=== PATIENT | female | born 1970 | race Caucasian/White ===

== ENCOUNTER 2023-10-01 01:52 | Observation (INO) | payer OTHER ==
[2023-10-01] MEDS ORDERED: NALOXONE 0.4 MG/ML 1 ML VIAL IVP PRN (02:21)
[2023-10-01] MEDS ORDERED: IPRATROPIUM-ALBUTEROL 3 ML NEB INHALATION PRN (02:21)
--- NOTE | 2023-10-01 02:28 | ED ---
General Adult HPI - General Chief complaint: Shortness of Breath Stated complaint: Rib Fracture Time Seen by Provider: 10/01/23 02:00 Source: patient, EMS, RN notes reviewed, old records reviewed Mode of arrival: EMS Limitations: no limitations - History of Present Illness Initial comments: 53-year-old female history of COPD presents for evaluation of COPD exacerbation and fall with nondisplaced rib fractures. Patient was seen at outside hospital and transferred for pulmonology consultation. Patient is currently being worked up for narcolepsy and believes this may have been what happened earlier in the day resulting in rib fractures. She denies significant pain currently. She is on home oxygen at baseline. No fever. - Related Data Allergies Allergy/AdvReac Type Severity Reaction Status Date / Time No Known Allergies Allergy Verified 10/01/23 02:02 Review of Systems ROS Statement: Those systems with pertinent positive or pertinent negative responses have been documented in the HPI. ROS Other: All systems not noted in ROS Statement are negative. Past Medical History Past Medical History: Heart Failure, COPD, GERD/Reflux, Hyperlipidemia, Osteoarthritis (OA) Additional Past Medical History / Comment(s): Aly esophagis History of Any Multi-Drug Resistant Organisms: None Reported Past Surgical History: Section Additional Past Surgical History / Comment(s): Ankle Past Psychological History: Depression Smoking Status: Current every day smoker, Former smoker Past Alcohol Use History: None Reported Past Drug Use History: Marijuana General Exam Limitations: no limitations General appearance: alert, in no apparent distress Head exam: Present: atraumatic, normocephalic Eye exam: Present: normal appearance, PERRL ENT exam: Present: normal exam Neck exam: Present: normal inspection. Absent: tenderness Respiratory exam: Present: wheezes, chest wall tenderness. Absent: respiratory distress Cardiovascular Exam: Present: regular rate, normal rhythm GI/Abdominal exam: Present: soft. Absent: distended, tenderness, guarding Neurological exam: Present: alert, oriented X3 Psychiatric exam: Present: normal affect, normal mood Course Vital Signs 10/01/23 10/01/23 01:55 02:14 Temperature 97.9 F Pulse Rate 104 H Respiratory 28 H 24 Rate Blood Pressure 114/86 O2 Sat by Pulse 92 L Oximetry Medical Decision Making - Medical Decision Making Was pt. sent in by a medical professional or institution (, PA, FAG[employer]ER, urgent care, hospital, or fci...) When possible be specific @ -Transfer from [place] for COPD exacerbation Did you speak to anyone other than the patient for history (EMS, parent, family, police, friend...)? What history was obtained from this source @ -[No] Did you review nursing and triage notes (agree or disagree)? Why? @ -[I reviewed and agree with nursing and triage notes] Were old charts reviewed (outside hosp., previous admission, EMS record, old EKG, old radiological studies, urgent care reports/EKG's, fci records)? Report findings @ -[No old charts were reviewed] Differential Dyspnea: Coronary syndrome, arrhythmia, tamponade, asthma, COPD, pulmonary embolism, pneumonia, pneumothorax, pulmonary effusion, anaphylaxis, diabetic ketoacidosis, flailed chest, pulmonary contusion, diaphragmatic rupture, anemia, neuromuscular, this is not meant to be an all-inclusive list. EKG interpreted by me (3pts min.). @ -Sinus rhythm rate of 99, HI interval 155, QRS duration 92, QTc [address] segment elevation. X-rays interpreted by me (1pt min.). @Chest x-ray pending in a.m. CT interpreted by me (1pt min.). @CT from outside institution will be loaded U/S interpreted by me (1pt. min.). @ -[None done] What testing was considered but not performed or refused? (CT, X-rays, U/S, labs)? Why? @ -[None] What meds were considered but not given or refused? Why? @ -[None] Did you discuss the management of the patient with other professionals (professionals i.e. , PA, FAGOT MAKER, lab, RT, psych nurse, psychologist social, maintenance journeyman, teacher, correctional probation officer, case picker)? Give summary @ -[No] Was smoking cessation discussed for >3mins.? @ -[No] Was critical care preformed (if so, how long)? @ -[No] Were there social determinants of health that impacted care today? How? (Homelessness, low income, unemployed, alcoholism, drug addiction, transportation, low edu. Level, literacy, decrease access to med. care, mcc, rehab)? @ -[No] Was there de-escalation of care discussed even if they declined (Discuss DNR or withdrawal of care, Hospice)? DNR status @ -[No] What co-morbidities impacted this encounter? (DM, HTN, Smoking, COPD, CAD, Cancer, CVA, ARF, Chemo, Hep., AIDS, mental health diagnosis, sleep apnea, morbid obesity)? @ -COPD, oxygen dependent Was patient admitted / discharged? Hospital course, mention meds given and route, prescriptions, significant lab abnormalities, going to OR and other pertinent info. @ -[53-year-old female transferred from outside hospital for evaluation of COPD exacerbation. Patient will be admitted to the substitution for COPD exacerbation with fall and nondisplaced rib fractures. Currently not experiencing severe pain. Her radio mechanic apprentice is Dr. Umaña and will be placed on consult. Pain control will be provided as well as treatment of antibiotics, steroids, albuterol and Atrovent. Repeat laboratory testing is ordered results pending. A.m. chest x-ray is ordered. Undiagnosed new problem with uncertain prognosis? @ -[No] Drug Therapy requiring intensive monitoring for toxicity (Heparin, Nitro, Insulin, Cardizem)? @ -[No] Were any procedures done? @ -[No] Diagnosis/symptom? @COPD exacerbation, rib fractures Acute, or Chronic, or Acute on Chronic? @ -Acute Uncomplicated (without systemic symptoms) or Complicated (systemic symptoms)? @ -Complicated Side effects of treatment? @ -[No] Exacerbation, Progression, or Severe Exacerbation? @ -[No] Poses a threat to life or bodily function? How? (Chest pain, [place], [place], pneumonia, PE, COPD, DKA, ARF, appy, cholecystitis, CVA, Diverticulitis, Homicidal, Suicidal, threat to staff... and all critical care pts) @Yes, COPD, respiratory failure Disposition Clinical Impression: Acute exacerbation of chronic obstructive pulmonary disease Disposition: ADMITTED IP TO THIS HOSP Condition: Stable Is patient prescribed a controlled substance at d/c from ED?: No Referrals: Teresa Modi NPC [Primary Care Provider] - 1-2 days Time of Disposition: 02:27
[2023-10-01] MEDS: HYDROmorphone 0.5 MG/0.5 ML SYRINGE IVP PRN (02:55)
[2023-10-01 03:10] LABS: VBG PH 7.37 (7.31-7.41)
[2023-10-01 03:22] LABS: Basophils % (A) 0 %; Eosinophils % (A) 0 %; HCT 27.1 % (34.0-46.0); HGB 8.6 gm/dL (11.4-16.0); Lymphocytes # (A) 0.3 k/uL (1.0-4.8); Lymphocytes % (A) 4 %; MCHC 31.8 g/dL (31.0-37.0); MCV 84.8 fL (80.0-100.0); Mean Platelet Volume 7.2; Monocytes # (A) 0.4 k/uL (0-1.0); Monocytes % (A) 4 %; Neutrophils # (A) 7.9 k/uL (1.3-7.7); Neutrophils % (A) 91 %; Platelet Count 296 k/uL (150-450); RBC 3.19 m/uL (3.80-5.40); RDW 13.2 % (11.5-15.5); WBC 8.7 k/uL (3.8-10.6)
[2023-10-01 03:32] LABS: ALT 23 U/L (4-34); AST 40 U/L (14-36); African American GFR (CKD) >90 (>60 ml/min/1.73 sqM); Alkaline Phosphatase 103 U/L (38-126); Anion Gap 4 mmol/L; Blood Urea Nitrogen 13 mg/dL (7-17); Calcium 8.3 mg/dL (8.4-10.2); Carbon Dioxide 36 mmol/L (22-30); Chloride 83 mmol/L (98-107); Glucose 126 mg/dL (74-99); Non-African American GFR(CKD) >90 (>60 ml/min/1.73 sqM); Potassium 4.9 mmol/L (3.5-5.1); Sodium 123 mmol/L (137-145); Total Bilirubin 1.1 mg/dL (0.2-1.3); Total Protein 6.9 g/dL (6.3-8.2)
[2023-10-01] MEDS: AZITHROMYCIN 500 MG in SODIUM CHLORIDE 0.9% 250 ML IVPB STA (04:24)
[2023-10-01] MEDS: methylPREDNISolone SOD SUCCI 125 MG/2 ML VIAL IV SCH ×2 (05:46→22:09)
[2023-10-01] MEDS: SODIUM CHLORIDE 0.9% 1,000 ML IV SCH (05:54)
--- NOTE | 2023-10-01 06:05 | P.CNPUL ---
History of Present Illness Consult date: 10/01/23 Requesting physician: Mitchel Rosales Reason for consult: COPD, other (Nondisplaced rib fractures) Chief complaint: Fall History of present illness: Patient is a 53-year-old white female with past medical history significant for severe COPD, chronic hypoxemic respiratory failure, obstructive sleep apnea with previous device noncompliance, vocal cord polyps, GERD, obesity, and chronic tobacco dependence. Patient's primary care provider is a Teresa Modi, a nurse practitioner out of [place], [place]. Patient also follows in the pulmonary office with Dr. Alexandre for management of her severe COPD, she has an FEV1 32% of predicted. She is chronically oxygen dependent on 4 L/min nasal cannula. Recently stopped smoking 3 weeks ago, prior to this smoked over 1 pack/day from most of her life. She utilizes a Trelegy inhaler, albuterol nebs [id number], and as needed albuterol rescue inhaler. States her COPD has been active lately. She has been wheezing with chest tightness. She has been more short of breath than at baseline. She is also had a nonproductive cough. Denies any significant purulent sputum production or fevers. No sick contacts. Formally, she was diagnosed with obstructive sleep apnea, was noncompliant with her CPAP device, and this was taken away. She reportedly has a follow-up sleep study scheduled. She reports frequent episodes of falling asleep at inappropriate intervals. This happens at least 1 time per day, but most often multiple times. She also reports poor short-term memory. Sleeps in a recliner at home. She feels she might have narcolepsy. States that she is seeing a local neurologist outpatient. Denies any's history of seizure disorder. States that she can usually remember falling. Yesterday, she fell forward. She hit her anterior chest and head. Initially, was evaluated at [facility]. CT of the brain without contrast did not show any intracranial hemorrhage or mass effect. Chest CT without contrast showed minimally displaced right-sided anterior rib fractures 6, 7, 8. There were remote appearing anterior right- sided rib fractures noted at levels 3, 4, and 5. There was right lower lobe and lingular atelectasis noted. No pleural effusions, pneumothoraces, or associated pulmonary contusion. Patient was transferred to [facility] for pulmonary consult. CBC on arrival: WBC count 8.7, hemoglobin 8.6, hematocrit 27.1, platelets 296. BMP on arrival: Sodium 123, potassium 4.9, chloride 83, serum bicarb 36, BUN 13, creatinine 0.57, glucose 126. LFTs not elevated. EKG shows normal sinus rhythm without any evidence obvious acute ischemic changes. VBG has pCO2 of 66 and pH of 7.37. She is currently sitting up in bed, on 4 L/min nasal cannula, in no acute distress. She is drowsy and sleepy, but does wake up and have sustained conversation. She is fully oriented. Her COPD does seem active, she is audibly wheezing. She is afebrile. Hemodynamically stable. Review of Systems REVIEW OF SYSTEMS: CONSTITUTIONAL: Denies any recent significant weight loss or weight gain. EYES: Denies change in vision. EARS, NOSE, MOUTH, THROAT: Denies headaches, denies sore throat. CARDIOVASCULAR: Denies radiating chest pain, palpitations, or lightheadedness. She does have occasional episodes of does admit to lower extremity swelling, but better than baseline. RESPIRATORY: Denies shortness of breath, cough, congestion or hemoptysis. GASTROINTESTINAL: Denies change in appetite, abdominal pain, nausea and vomiting, or diarrhea GENITOURINARY: Denies hematuria, denies infections. MUSKULOSKELETAL: Denies pain, denies swelling. INTEGUMENTARY: Denies rash, denies eczema. NEUROLOGICAL: Denies recent memory loss, no recent seizure activity. PSYCHIATRIC: Denies anxiety, denies depression. HEMATOLOGIC/LYMPHATIC: Denies anemia, denies enlarged lymph node Past Medical History Past Medical History: Heart Failure, COPD, GERD/Reflux, Hyperlipidemia, Osteoarthritis (OA) Additional Past Medical History / Comment(s): Aly esophagis History of Any Multi-Drug Resistant Organisms: None Reported Past Surgical History: Section Additional Past Surgical History / Comment(s): Ankle Past Psychological History: Depression Smoking Status: Current every day smoker, Former smoker Past Alcohol Use History: None Reported Past Drug Use History: Marijuana Medications and Allergies Allergies Allergy/AdvReac Type Severity Reaction Status Date / Time No Known Allergies Allergy Verified 10/01/23 02:02 Physical Exam Vitals: Vital Signs Temp Pulse Resp BP Pulse Ox 10/01/23 04:00 93 12 128/99 95 10/01/23 03:00 98 15 114/86 97 10/01/23 02:14 24 10/01/23 01:55 97.9 F 104 H 28 H 114/86 92 L Intake and Output 09/30/23 09/30/23 10/01/23 14:59 22:59 06:59 Other: Weight 101.469 kg GENERAL EXAM: Alert, 53-year-old morbidly obese white female, comfortable in no apparent distress. HEAD: Normocephalic and atraumatic EYES: Normal reaction of pupils, equal size. NOSE: Clear with pink turbinates. THROAT: No erythema or exudates. NECK: Short thick neck. No masses, no JVD. CHEST: No chest wall deformity. LUNGS: Equal air entry with marked expiratory wheezing heard throughout. On 4 L/min nasal cannula. No conversational dyspnea or accessory muscle use while at rest. Voice hoarseness. CVS: S1 and S2 normal with no audible murmur, regular rhythm. No extra heart sounds ABDOMEN: No hepatosplenomegaly, active bowel sounds, no guarding or rigidity. SPINE: No scoliosis or deformity SKIN: No rashes CENTRAL NERVOUS SYSTEM: No focal deficits, tone is normal in all 4 extremities. EXTREMITIES: There bilateral lower extremity 1-2+ pitting edema. No clubbing, or cyanosis. Peripheral pulses are intact. Results - Laboratory Findings CBC and BMP: 10/01/23 02:33 10/01/23 02:33 Abnormal lab findings: Abnormal Labs 10/01/23 10/01/23 10/01/23 02:33 02:33 02:33 RBC 3.19 L Hgb 8.6 L Hct 27.1 L Neutrophils # 7.9 H Lymphocytes # 0.3 L VBG pCO2 66 H VBG HCO3 38 H Sodium 123 L Chloride 83 L Carbon Dioxide 36 H Glucose 126 H Calcium 8.3 L AST 40 H - Diagnostic Findings Chest x-ray: image reviewed CT scan - chest: image reviewed Assessment and Plan Assessment: Frequent falls, sustaining minimally displaced anterior right-sided rib fractures at levels 6, 7, and 8. Patient was also noted to have remote appearing rib fractures at levels 3, 4, 5. Acute COPD exacerbation, no focal infiltrates noted on review of chest CT performed at outside facility. Negative for influenza, RSV, COVID at outside facility. Acute on chronic dyspnea, secondary to combination of above Severe chronic obstructive pulmonary disease, with an FEV1 32% of predicted. Normally maintained on a combination of Trelegy inhaler, albuterol nebs [id number], and as needed albuterol rescue inhaler. Chronic hypoxemic respiratory failure, normally maintained on 4 L/min nasal cannula History of obstructive sleep apnea, with previous device noncompliance, subsequently taken away by insurance. She reportedly has a follow-up sleep study scheduled. Hypervolemic hyponatremia Bilateral lower extremity edema Normocytic, normochromic anemia, no overt signs of acute blood loss, possibly ch ronic finding, but no baseline hemoglobin available for comparison History of vocal cord polyps History of GERD with esophagitis Morbid obesity, with a BMI of 40.9 kg/m Former tobacco dependence, reportedly quitting 3 weeks ago, with over [id number] history Plan: Patient's medications, labs, imaging reviewed Continue supplemental oxygen to maintain oxygen saturation of 90% or greater, currently on her baseline 4 L/min nasal cannula Patient started on a combination of Symbicort inhaler, DuoNebs [id number], and IV Solu-Medrol Encourage pulmonary toileting and incentive spirometer As needed analgesics are ordered. Follow-up chest x-ray was ordered for this morning Previously noncompliant with her CPAP device, and this was reportedly taken away by insurance. Patient states that she has a follow-up sleep study scheduled. CT of the brain taken at outside facility, reportedly did not show any intracranial hemorrhage or mass effect. No focal deficits noted on examination Reportedly following with outpatient neurologist. Obtain a transthoracic echocardiogram Will need to reconcile home medications Will continue to follow, and further recommendations are forthcoming I have personally seen and examined the patient, performed the documentation and the assessment and plan as written. Number of minutes spent on the visit:20 Time with Patient: Greater than 30
[2023-10-01] MEDS: SYMBICORT 160-4.5 MCG INHALER INHALATION SCH (07:54)
[2023-10-01] MEDS: IPRATROPIUM-ALBUTEROL 3 ML NEB INHALATION SCH (07:54)
--- NOTE | 2023-10-01 08:19 | XR ---
EXAMINATION TYPE: XR chest 2V DATE OF EXAM: 10/01/2023 6:44 AM CLINICAL INDICATION:Female, 53 years old with history of sob; COMPARISON: Chest radiographs from 10/01/2023. TECHNIQUE: XR chest 2V Frontal and lateral views of the chest. FINDINGS: Lungs/Pleura: There is no evidence of pleural effusion, focal consolidation, or pneumothorax. Pulmonary vascularity: Unremarkable. Heart/mediastinum: Cardiomediastinal silhouette is unremarkable. Musculoskeletal: No acute osseous pathology. Step-off of the sternum. IMPRESSION: 1. Low lung volumes with a generalized hazy appearance which could represent atelectasis versus pulm onary edema correlate with serum BNP. 2. Step-off of the sternum possibly relating to fracture. Correlate with point tenderness.
[2023-10-01] MEDS ORDERED: lisinopriL 10 MG TAB PO SCH (11:00)
--- NOTE | 2023-10-01 11:01 | P.HPIM ---
History of Present Illness Pleasant 53-year-old female came in with complaints of shortness of breath. Patient does have history of severe COPD with FEV1 of 32% and wheeze. Oxygen. Patient is still wheezing quite a bit at this time patient received systemic st eroids and additional treatments patient is feeling better today. Chest x-ray did not show any pneumonia but was suspicious for congestive heart failure although patient clinically does not have any JVD or pedal edema. Patient serum sodium is low because of her torsemide spironolactone and Lasix she takes on as- needed basis. Bilateral lower extremities. Patient denies any fever chills patient any cough. Chest x-ray is not consistent with pneumonia. Patient quit smoking 3 weeks ago patient denies alcohol abuse history REVIEW OF SYSTEMS: CONSTITUTIONAL: No fever, no malaise, no fatigue. HEENT: No recent visual problems or hearing problems. Denied any sore throat. CARDIOVASCULAR: No chest pain, orthopnea, PND, no palpitations, no syncope. PULMONARY: no hemoptysis. GASTROINTESTINAL: No diarrhea, no nausea, no vomiting, no abdominal pain. NEUROLOGICAL: No headaches, no weakness, no numbness. HEMATOLOGICAL: Denies any bleeding or petechiae. GENITOURINARY: Denies any burning micturition, frequency, or urgency. MUSCULOSKELETAL/RHEUMATOLOGICAL: Denies any joint pain, swelling, or any muscle pain. ENDOCRINE: Denies any polyuria or polydipsia. The rest of the 14-point review of systems is negative. PHYSICAL EXAMINATION: GENERAL: The patient is alert and oriented x3, not in any acute distress. Well developed, well nourished. Obese HEENT: Pupils are round and equally reacting to light. EOMI. No scleral icterus. No conjunctival pallor. Normocephalic, atraumatic. No pharyngeal erythema. No thyromegaly. CARDIOVASCULAR: S1 and S2 present. No murmurs, rubs, or gallops. PULMONARY: Significant extra expiratory wheezing on exam and limited air entry to bilateral lung calderon on 4 L of oxygen at this time ABDOMEN: Soft, nontender, nondistended, normoactive bowel sounds. No palpable organomegaly. MUSCULOSKELETAL: No joint swelling or deformity. EXTREMITIES: No cyanosis, clubbing, or pedal edema. NEUROLOGICAL: Gross neurological examination did not reveal any focal deficits. SKIN: No rashes. Assessment and plan Acute on chronic hypoxemic and hypercapnic respiratory failure secondary to COPD exacerbation continue systemic steroids inpatient treatments patient is doing significantly better since her hospitalization and if she does well patient can be discharged tomorrow -Hyponatremia secondary to diuretics which should be held and patient was started on IV fluids at 100 cc/h. Will obtain a BNP level although patient clinically does not have any congestive heart failure -Hyperlipidemia -Obesity -Patient has vocal cord polyps may be contributing to some of the stridor. -Obstructive sleep apnea has a CPAP machine DVT prophylaxis: Past Medical History Past Medical History: Heart Failure, COPD, GERD/Reflux, Hyperlipidemia, Osteoarthritis (OA) Additional Past Medical History / Comment(s): Aly esophagis History of Any Multi-Drug Resistant Organisms: None Reported Past Surgical History: Section Additional Past Surgical History / Comment(s): Ankle Past Psychological History: Depression Smoking Status: Current every day smoker, Former smoker Past Alcohol Use History: None Reported Past Drug Use History: Marijuana Medications and Allergies Home Medications Medication Instructions Recorded Confirmed Type Albuterol Sulfate [Ventolin HFA] 1 - 2 puff INHALATION RT-Q6H PRN 10/01/23 10/01/23 History Ergocalciferol [Vitamin D2 (1250 1,250 mcg PO MO 10/01/23 10/01/23 History Mcg = 06643 Iu)] Fluticasone/Umeclidin/Vilanter 1 puff INHALATION RT-DAILY 10/01/23 10/01/23 History [Trelegy Ellipta 200-62.5-25] Furosemide [Lasix] 20 - 60 mg PO DAILY 10/01/23 10/01/23 History Ipratropium-Albuterol Nebulize 3 ml INHALATION RT-QID 10/01/23 10/01/23 History [Duoneb 0.5 mg-3 mg/3 ml Soln] Meloxicam [Mobic] 15 mg PO DAILY 10/01/23 10/01/23 History Omeprazole [PriLOSEC] 40 mg PO DAILY 10/01/23 10/01/23 History Pramipexole [Mirapex] 1 mg PO QID 10/01/23 10/01/23 History Spironolactone 25 mg PO DAILY 10/01/23 10/01/23 History Torsemide [Demadex] See Taper PO DIRECTED 10/01/23 10/01/23 History lisinopriL [Zestril] 10 mg PO DAILY 10/01/23 10/01/23 History Allergies Allergy/AdvReac Type Severity Reaction Status Date / Time No Known Allergies Allergy Verified 10/01/23 08:44 Physical Exam Vitals: Vital Signs Temp Pulse Resp BP Pulse Ox 10/01/23 10:00 110 H 16 150/97 95 10/01/23 07:56 92 14 129/96 96 10/01/23 07:54 96 96 10/01/23 05:00 98 15 106/86 95 10/01/23 04:00 93 12 128/99 95 10/01/23 03:00 98 15 114/86 97 10/01/23 02:14 24 10/01/23 01:55 97.9 F 104 H 28 H 114/86 92 L Intake and Output 09/30/23 10/01/23 10/01/23 22:59 06:59 14:59 Other: Weight 101.469 kg Results CBC & Chem 7: 10/01/23 02:33 10/01/23 02:33 Labs: Abnormal Lab Results - Last 24 Hours (Table) 10/01/23 10/01/23 10/01/23 Range/Units 02:33 02:33 02:33 RBC 3.19 L (3.80-5.40) m/uL Hgb 8.6 L (11.4-16.0) gm/dL Hct 27.1 L (34.0-46.0) % Neutrophils # 7.9 H (1.3-7.7) k/uL Lymphocytes # 0.3 L (1.0-4.8) k/uL VBG pCO2 66 H (37-51) mmHg VBG HCO3 38 H (24-28) mmol/L Sodium 123 L (137-145) mmol/L Chloride 83 L (98-107) mmol/L Carbon Dioxide 36 H (22-30) mmol/L Glucose 126 H (74-99) mg/dL Calcium 8.3 L (8.4-10.2) mg/dL AST 40 H (14-36) U/L
[2023-10-01] MEDS: PANTOPRAZOLE 40 MG TABLET PO SCH (12:00)
[2023-10-01] MEDS: ERGOCALCIFEROL 1,250 MCG (50,000 IU) CAPSULE PO SCH (12:00)
[2023-10-01] MEDS: PRAMIPEXOLE 1 MG TAB PO SCH (12:25)
[2023-10-01] MEDS: ACETAMINOPHEN TAB 325 MG TAB PO PRN (20:16)
[2023-10-02] MEDS: lisinopriL 5 MG TAB PO SCH (08:41)
[2023-10-02] MEDS: predniSONE 20 MG TAB PO SCH (08:41)
[2023-10-02 11:11] VITALS: RESP 18
[2023-10-02 11:53] LABS: ALT 21 U/L (4-34); AST 26 U/L (14-36); African American GFR (CKD) >90 (>60 ml/min/1.73 sqM); Albumin 3.9 g/dL (3.5-5.0); Alkaline Phosphatase 96 U/L (38-126); Anion Gap 5 mmol/L; Blood Urea Nitrogen 15 mg/dL (7-17); Calcium 8.9 mg/dL (8.4-10.2); Carbon Dioxide 39 mmol/L (22-30); Chloride 87 mmol/L (98-107); Glucose 117 mg/dL (74-99); Non-African American GFR(CKD) >90 (>60 ml/min/1.73 sqM); Potassium 4.8 mmol/L (3.5-5.1); Sodium 131 mmol/L (137-145); Total Bilirubin 0.5 mg/dL (0.2-1.3); Total Protein 6.9 g/dL (6.3-8.2)
--- NOTE | 2023-10-02 12:12 | P.PN ---
Subjective Progress Note Date: 10/02/23 Patient is a 53-year-old white female with past medical history significant for severe COPD, chronic hypoxemic respiratory failure, obstructive sleep apnea with previous device noncompliance, vocal cord polyps, GERD, obesity, and chronic tobacco dependence. Patient's primary care provider is a Teresa Modi, a nurse practitioner out of [place], [place]. Patient also follows in the pulmonary office with Dr. Alexandre for management of her severe COPD, she has an FEV1 32% of predicted. She is chronically oxygen dependent on 4 L/min nasal cannula. Recently stopped smoking 3 weeks ago, prior to this smoked over 1 pack/day from most of her life. She utilizes a Trelegy inhaler, albuterol nebs [id number], and as needed albuterol rescue inhaler. States her COPD has been active lately. She has been wheezing with chest tightness. She has been more short of breath than at baseline. She is also had a nonproductive cough. Denies any significant purulent sputum production or fevers. No sick contacts. Formally, she was diagnosed with obstructive sleep apnea, was noncompliant with her CPAP device, and this was taken away. She reportedly has a follow-up sleep study scheduled. She reports frequent episodes of falling asleep at inappropriate intervals. This happens at least 1 time per day, but most often multiple times. She also reports poor short-term memory. Sleeps in a recliner at home. She feels she might have narcolepsy. States that she is seeing a local neurologist outpatient. Denies any's history of seizure disorder. States that she can usually remember falling. Yesterday, she fell forward. She hit her anterior chest and head. Initially, was evaluated at [facility]. CT of the brain without contrast did not show any intracranial hemorrhage or mass effect. Chest CT without contrast showed minimally displaced right-sided anterior rib fractures 6, 7, 8. There were remote appearing anterior right- sided rib fractures noted at levels 3, 4, and 5. There was right lower lobe and lingular atelectasis noted. No pleural effusions, pneumothoraces, or associated pulmonary contusion. Patient was transferred to [facility] for pulmonary consult. CBC on arrival: WBC count 8.7, hemoglobin 8.6, hematocrit 27.1, platelets 296. BMP on arrival: Sodium 123, potassium 4.9, chloride 83, serum bicarb 36, BUN 13, creatinine 0.57, glucose 126. LFTs not elevated. EKG shows normal sinus rhythm without any evidence obvious acute ischemic changes. VBG has pCO2 of 66 and pH of 7.37. She is currently sitting up in bed, on 4 L/min nasal cannula, in no acute distress. She is drowsy and sleepy, but does wake up and have sustained conversation. She is fully oriented. Her COPD does seem active, she is audibly wheezing. She is afebrile. Hemodynamically stable. The patient is seen today October 02, 2023 in follow-up in the emergency department. She is currently sitting up in bed. Awake and alert in no acute distress. She is breathing easier today compared to yesterday. Maintaining O2 saturations in the 90s on 4 L/min per nasal cannula. No IV fluids. Working well with the incentive spirometer. Chest x-ray revealed low lung volumes with generalized hazy appearance representing atelectasis. Sodium 131. Potassium 4.8. Bicarb 39. BUN 15. Creatinine 0.61. Glucose 117. She is continued on DuoNeb inhalations, Symbicort, Solu-Medrol. Objective - Vital Signs Vital signs: Vital Signs Temp 98.4 F 10/02/23 11:10 Pulse 109 H 10/02/23 11:10 Resp 18 10/02/23 11:10 BP 114/84 10/02/23 11:10 Pulse Ox 95 10/02/23 11:10 FiO2 Intake & Output 10/01/23 10/02/23 10/02/23 18:59 06:59 18:59 Weight 101.469 kg Other: Voiding Method External Catheter # Voids 500 - Exam GENERAL EXAM: Alert, pleasant 53-year-old female, on 4 L nasal cannula, fairly comfortable in no apparent distress. HEAD: Normocephalic. EYES: Normal reaction of pupils, equal size. NOSE: Clear with pink turbinates. THROAT: No erythema or exudates. NECK: No masses, no JVD. CHEST: No chest wall deformity. LUNGS: Equal air entry with bilateral end expiratory wheeze, diminished. CVS: S1 and S2 normal with no audible murmur, regular rhythm. ABDOMEN: No hepatosplenomegaly, normal bowel sounds, no guarding or rigidity. SPINE: No scoliosis or deformity SKIN: No rashes CENTRAL NERVOUS SYSTEM: No focal deficits, tone is normal in all 4 extremities. EXTREMITIES: There is 1-2+ peripheral edema. No clubbing, no cyanosis. Peripheral pulses are intact. - Labs CBC & Chem 7: 10/01/23 02:33 10/02/23 10:56 Labs: Abnormal Lab Results - Last 24 Hours (Table) 10/02/23 Range/Units 10:56 Sodium 131 L (137-145) mmol/L Chloride 87 L (98-107) mmol/L Carbon Dioxide 39 H (22-30) mmol/L Glucose 117 H (74-99) mg/dL Assessment and Plan Assessment: Frequent falls, sustaining minimally displaced anterior right-sided rib fractures at levels 6, 7, and 8. Patient was also noted to have remote appearing rib fractures at levels 3, 4, 5. Acute COPD exacerbation, no focal infiltrates noted on review of chest CT performed at outside facility. Negative for influenza, RSV, COVID at outside facility. Acute on chronic dyspnea, secondary to combination of above Severe chronic obstructive pulmonary disease, with an FEV1 32% of predicted. Normally maintained on a combination of Trelegy inhaler, albuterol nebs [id number], and as needed albuterol rescue inhaler. Chronic hypoxemic respiratory failure, normally maintained on 4 L/min nasal cannula History of obstructive sleep apnea, with previous device noncompliance, subsequently taken away by insurance. She reportedly has a follow-up sleep study scheduled. Hypervolemic hyponatremia Bilateral lower extremity edema Normocytic, normochromic anemia, no overt signs of acute blood loss, possibly chronic finding, but no baseline hemoglobin available for comparison History of vocal cord polyps History of GERD with esophagitis Morbid obesity, with a BMI of 40.9 kg/m Former tobacco dependence, reportedly quitting 3 weeks ago, with over [id number] history Plan: The patient was seen and evaluated Labs and medications reviewed Transition to oral steroids Cleared for discharge from the pulmonary standpoint Continue her home pulmonary medications, oxygen Complete a prednisone taper Follow-up in the office in 1 week I have personally seen and examined the patient, performed the documentation and the assessment and plan as written. Number of minutes spent on the visit: 10.
[2023-10-02 15:37] VITALS: BP 130/84; TEMP 98.5
[2023-10-02 16:09] VITALS: PULSE 98
--- NOTE | 2023-10-02 17:32 | CA ---
Transthoracic Echo Report Name: Tess Singletary Age: 53 Gender: F : 1970 Exam Date: 10/02/2023 11:59 Exam Location: [place] [facility] Ht (in): 62 Wt (lb): 223 Ordering Physician: German Lopez Attending/Referring Phys: Java Swing Developer Xena Deshpande RDCS Procedure CPT: Indications: frequent falls, possible syncopal event Cardiac Hx: Technical Quality: Fair Contrast 1: Total Dose (mL): Contrast 2: Total Dose (mL): MEASUREMENTS (Male / Female) Normal Values 2D ECHO LV Diastolic Diameter PLAX 4.3 cm 4.2 - 5.9 / 3.9 - 5.3 cm LV Systolic Diameter PLAX 2.9 cm IVS Diastolic Thickness 1.2 cm 0.6 - 1.0 / 0.6 - 0.9 cm LVPW Diastolic Thickness 1.3 cm 0.6 - 1.0 / 0.6 - 0.9 cm LV Relative Wall Thickness 0.6 RV Internal Dim ED PLAX 2.7 cm LA Systolic Diameter LX 3.2 cm 3.0 - 4.0 / 2.7 - 3.8 cm LV Diastolic Volume MOD 4C 87.5 cm??? LV Systolic Volume MOD 4C 30.6 cm??? LV Ejection Fraction MOD 4C 65.0 % LV Cardiac Index MOD 4C 2687.0 cm???/min???m??? LV Diastolic Length 4C 8.2 cm LV Systolic Length 4C 6.6 cm LV Diastolic Volume MOD 2C 45.6 cm??? LV Systolic Volume MOD 2C 14.1 cm??? LV Ejection Fraction MOD 2C 69.0 % LV Cardiac Index MOD 2C 1486.9 cm???/min???m??? LV Diastolic Length 2C 7.1 cm LV Systolic Length 2C 6.5 cm LA Volume 27.1 cm??? 18 - 58 / 22 - 52 cm??? LA Volume Index 12.6 cm???/m??? 16 - 28 cm???/m??? M-MODE Aortic Root Diameter MM 3.1 cm AV Cusp Separation MM 1.9 cm DOPPLER AV Peak Velocity 158.6 cm/s AV Peak Gradient 10.1 mmHg MV Area PHT 3.0 cm??? Mitral E Point Velocity 87.7 cm/s Mitral A Point Velocity 106.8 cm/s Mitral E to A Ratio 0.8 MV Deceleration Time 249.4 ms FINDINGS Left Ventricle Left ventricular ejection fraction is estimated at 55-60 %. Left ventricular cavity size normal. Mildly increased septal wall thickness. Moderately increased posterior wall thickness. No obvious regional wall motion abnormalities. Right Ventricle Normal right ventricular size. Unable to estimate the right ventricular systolic pressure. Right Atrium Right atrium not well visualized. Left Atrium Normal left atrial size. No left atrial thrombus or mass present. Mitral Valve Structurally normal mitral valve. No mitral stenosis, regurgitation or prolapse. Aortic Valve Trileaflet aortic valve. No aortic valve stenosis or regurgitation. Tricuspid Valve Structurally normal tricuspid valve. No tricuspid stenosis, regurgitation or prolapse. Pulmonic Valve Pulmonic valve not well visualized. No pulmonic regurgitation. Pericardium No pericardial or pleural effusion. Aorta Normal size aortic root and proximal ascending aorta. CONCLUSIONS Normal LV Previewed by: Dr. Blair Cárdenas MD (Electronically Signed) Final Date: 02 October 2023 17:31
--- NOTE | 2023-10-05 07:27 | P.DS ---
Providers Date of admission: 10/01/23 02:21 Expected date of discharge: 10/02/23 Attending physician: Vamsi Richardson Consults: 10/01/23 02:21 Consult Physician Routine Consulting Provider: Bri Alexandre Consult Reason/Comments: COPD, rib fracture Do you want consulting provider notified?: Yes Primary care physician: Donato Perrin [facility] Course: Final diagnosis -Acute on chronic hypoxemic and hypercapnic respiratory failure secondary to COPD exacerbation -Hyponatremia secondary to diuretics which should be held -Hyperlipidemia -Morbid obesity with a BMI of 40.9 -Patient has vocal cord polyps may be contributing to some of the stridor. -Obstructive sleep apnea has a CPAP machine, scheduled for outpatient sleep study in October GI prophylaxis DVT prophylaxis Full code Discharge disposition Patient is being discharged in a stable condition with guarded prognosis to home. Patient will follow-up with Dr. Perrin in the outpatient setting upon discharge. Patient is to continue with current medications and inhalers and outpatient follow-up with sleep study with pulmonary as scheduled. Total time taken is greater than 35 minutes. Hospital course This is a 53-year-old female who was recently admitted with increasing shortness of breath with acute hypoxic respiratory failure secondary to COPD exacerbation. Patient also with noted hyponatremia had been on diuretics showing improvements and will continue to hold. Patient reports has a follow-up appointment with sleep apnea clinic on November 06 and instructed patient to continue with this appointment. Patient will continue on her inhalers along with steroids and close outpatient follow-up with pulmonary. Currently no reports of chest pain, shortness of breath, or palpitations. Patient is afebrile. No reports of nausea or vomiting and patient is tolerating diet. Patient will be discharged home today. High risk for readmissions given patient's significant COPD Physical exam: Gen: This is a 53-year-old female who is awake, alert and oriented x 3, well- developed, well-nourished, obese HEENT: Head is atraumatic, normocephalic. Pupils equal, round. Sclerae is anicteric. NECK: Supple. No JVD. No lymphadenopathy. No thyromegaly. LUNGS: Diminished breath sounds bilaterally with some scattered faint expiratory wheezes noted, coarse rhonchi as well. No intercostal retractions. HEART: Regular rate and rhythm. No murmur. ABDOMEN: Soft. Obese. Bowel sounds are present. No masses. No tenderness. EXTREMITIES: No pedal edema. No calf tenderness. NEUROLOGICAL: Patient is awake, alert and oriented x3. Cranial nerves 2 through 12 are grossly intact. Please refer to medication reconciliation sheet for a list of medications. The impression and plan of care has been dictated by Rosa Herrera, Nurse Practitioner as directed. Dr. Teresa MD I have performed a history and examination and MDM of this patient, discussed the same with the dictator, and agree with the dictator's assessment and plan as written ,documented as a scribe. Based on total visit time, I have performed more than 50% of the visit. Patient Condition at Discharge: Stable Plan - Discharge Summary New Discharge Prescriptions: New Ipratropium-Albuterol Nebulize [Duoneb 0.5 mg-3 mg/3 ml Soln] 3 ml INHALATION RT-Q2H PRN each PRN Reason: Shortness Of Breath Or Wheezing Acetaminophen Tab [Tylenol] 650 mg PO Q4HR PRN tab PRN Reason: Mild Pain Or Fever > 100.5 predniSONE 10 mg PO DIRECTED #30 tab Continue Pramipexole [Mirapex] 1 mg PO QID Omeprazole [PriLOSEC] 40 mg PO DAILY Ergocalciferol [Vitamin D2 (1250 Mcg = 64559 Iu)] 1,250 mcg PO MO Albuterol Sulfate [Ventolin HFA] 1 - 2 puff INHALATION RT-Q6H PRN PRN Reason: Shortness Of Breath Meloxicam [Mobic] 15 mg PO DAILY Ipratropium-Albuterol Nebulize [Duoneb 0.5 mg-3 mg/3 ml Soln] 3 ml INHALATION RT-QID Fluticasone/Umeclidin/Vilanter [Trelegy Ellipta 200-62.5-25] 1 puff INHALATION RT-DAILY Changed Furosemide [Lasix] 20 - 40 mg PO DAILY PRN #0 PRN Reason: Edema lisinopriL [Zestril] 5 mg PO DAILY #0 Discontinued Spironolactone 25 mg PO DAILY Torsemide [Demadex] See Taper PO DIRECTED Discharge Medication List Albuterol Sulfate [Ventolin HFA] 1 - 2 puff INHALATION RT-Q6H PRN 10/01/23 [History] Ergocalciferol [Vitamin D2 (1250 Mcg = 17030 Iu)] 1,250 mcg PO MO 10/01/23 [History] Fluticasone/Umeclidin/Vilanter [Trelegy Ellipta 200-62.5-25] 1 puff INHALATION RT-DAILY 10/01/23 [History] Ipratropium-Albuterol Nebulize [Duoneb 0.5 mg-3 mg/3 ml Soln] 3 ml INHALATION RT-QID 10/01/23 [History] Meloxicam [Mobic] 15 mg PO DAILY 10/01/23 [History] Omeprazole [PriLOSEC] 40 mg PO DAILY 10/01/23 [History] Pramipexole [Mirapex] 1 mg PO QID 10/01/23 [History] Acetaminophen Tab [Tylenol] 650 mg PO Q4HR PRN tab 10/02/23 [Rx] Furosemide [Lasix] 20 - 40 mg PO DAILY PRN #0 10/02/23 [Rx] Ipratropium-Albuterol Nebulize [Duoneb 0.5 mg-3 mg/3 ml Soln] 3 ml INHALATION RT-Q2H PRN each 10/02/23 [Rx] lisinopriL [Zestril] 5 mg PO DAILY #0 10/02/23 [Rx] predniSONE 10 mg PO DIRECTED #30 tab 10/02/23 [Rx] Follow up Appointment(s)/Referral(s): Bri Alexandre MD [STAFF PHYSICIAN] - 10/09/23 10:00 am Teresa Modi NPC [REFERRING] - 1-2 days Patient Instructions/Handouts: COPD (Chronic Obstructive Pulmonary Disease) (DC) Activity/Diet/Wound Care/Special Instructions: Activity limited until follow-up Follow-up with primary care provider on discharge Follow-up with pulmonary at your scheduled appointment and further pulmonary sleep apnea testing Continue taking medications as prescribed Continue prednisone taper Use Lasix 20-40 as needed, hold torsemide for now Discharge Disposition: HOME SELF-CARE
== END 2023-10-02 18:05 | disposition home or self-care (01) ==
LOC: EC 01:52 → INTOOBSV 02:21 → 3SCARD 02:21 → UNDOADMOB 02:21 → 3SCARD 02:22 → UNDODISIN 10-02 18:05
PROVIDERS: ADMIT Hospitalist; ATTEND Hospitalist
DX: J44.1 Chronic obstructive pulmonary disease with (acute) exacerbation (principal); J96.22 Acute and chronic respiratory failure with hypercapnia; J96.21 Acute and chronic respiratory failure with hypoxia; I50.9 Heart failure, unspecified; K21.9 Gastro-esophageal reflux disease without esophagitis; E78.5 Hyperlipidemia, unspecified; F32.A Depression, unspecified; G47.33 Obstructive sleep apnea (adult) (pediatric); R29.6 Repeated falls; E87.1 Hypo-osmolality and hyponatremia; D64.9 Anemia, unspecified; J38.1 Polyp of vocal cord and larynx; S22.41XA Multiple fractures of ribs, right side, initial encounter for closed fracture; W19.XXXA Unspecified fall, initial encounter; E66.01 Morbid (severe) obesity due to excess calories; Z68.41 Body mass index [BMI] 40.0-44.9, adult; Z87.891 Personal history of nicotine dependence; Z99.81 Dependence on supplemental oxygen
CPT/HCPCS: 96376 ×2; 96365; 96367; 96375; 99285; 94640 ×4; 94760 ×2; 93005; 93306; 83880; 80053 ×2; 82803; 83735; 85025; 87040; 71046; G0378 ×2; J0456; J0696; J7512; J1170 ×2; J2919

== ENCOUNTER 2023-12-20 11:16 | Emergency (ER) | payer OTHER ==
[2023-12-20] MEDS ORDERED: MORPHINE SULFATE 4 MG/ML SYRINGE ONE (11:38)
[2023-12-20] MEDS ORDERED: traMADol 50 MG STARTER PACK 3 TAB BTL ONE (13:39)
[2023-12-20] MEDS ORDERED: DEXAMETHASONE SOD PHOSPHATE 10 MG/ML 1 ML VIAL ONE (13:39)
[2023-12-20] MEDS ORDERED: IPRATROPIUM-ALBUTEROL 3 ML NEB ONE (13:40)
--- NOTE | 2024-01-15 13:04 | XR ---
Patient: Tess Singletary M Ordering Physician: Unknown, Unknown ID: [id number] Phone, Pager: Phone: N/A Pager: N/A : 1970 Age/Gender: 53Y, F Primary Location: N/A Procedure: XR Knee Bilat Study Date: 12/20/2023 12:50:00 PM EXAMINATION TYPE: Knee X-Ray Complete Bilateral DATE OF EXAM: 12/20/2023 CLINICAL HISTORY: pain TECHNIQUE: Three views of the right knee are obtained. COMPARISON: None. FINDINGS: There is no acute fracture/dislocation. The tri-compartment joint spaces appear mildly na rrowed. The overlying soft tissue appears unremarkable. IMPRESSION: There is no acute fracture or dislocation.ICD 10 NO FRACTURE, INITIAL EVALUATION EXAMINATION TYPE: Knee X-Ray Complete Bilateral DATE OF EXAM: 12/20/2023 CLINICAL HISTORY: pain TECHNIQUE: Three views of the left knee are obtained. COMPARISON: None. FINDINGS: There is no acute fracture/dislocation. The tri-compartment joint spaces appear moderatel y narrowed. The overlying soft tissue appears unremarkable. IMPRESSION: There is no acute fracture or dislocation ICD 10 NO FRACTURE, INITIAL EVALUATION
== END 2023-12-20 14:04 | disposition home or self-care (01) ==
LOC: EC 11:16
DX: M17.0 Bilateral primary osteoarthritis of knee (principal)
CPT/HCPCS: 96372; 99283

== ENCOUNTER 2024-02-29 14:45 | Inpatient (IN) | payer MEDICARE, OTHER ==
[2024-02-29] MEDS ORDERED: NALOXONE 0.4 MG/ML 1 ML VIAL IV PRN (15:21)
--- NOTE | 2024-02-29 15:21 | ED ---
General Adult HPI - General Chief complaint: Shortness of Breath Stated complaint: COPD Time Seen by Provider: 02/29/24 14:51 Source: patient, EMS, RN notes reviewed Mode of arrival: EMS Limitations: no limitations - History of Present Illness Initial comments: Patient is a 53-year-old female presenting to the emergency department with concerns with difficulty breathing. Onset of symptoms was about 4 days ago. Patient has history of COPD with similar symptoms previously. Patient does have occasional cough. No fever. - Related Data Home Medications Medication Instructions Recorded Confirmed Albuterol Sulfate [Ventolin HFA] 1 - 2 puff INHALATION RT-Q6H PRN 10/01/23 10/01/23 Ergocalciferol [Vitamin D2 (1250 1,250 mcg PO MO 10/01/23 10/01/23 Mcg = 99873 Iu)] Fluticasone/Umeclidin/Vilanter 1 puff INHALATION RT-DAILY 10/01/23 10/01/23 [Trelegy Ellipta 200-62.5-25] Ipratropium-Albuterol Nebulize 3 ml INHALATION RT-QID 10/01/23 10/01/23 [Duoneb 0.5 mg-3 mg/3 ml Soln] Meloxicam [Mobic] 15 mg PO DAILY 10/01/23 10/01/23 Omeprazole [PriLOSEC] 40 mg PO DAILY 10/01/23 10/01/23 Pramipexole [Mirapex] 1 mg PO QID 10/01/23 10/01/23 Previous Rx's Medication Instructions Recorded Acetaminophen Tab [Tylenol] 650 mg PO Q4HR PRN tab 10/02/23 Furosemide [Lasix] 20 - 40 mg PO DAILY PRN #0 10/02/23 Ipratropium-Albuterol Nebulize 3 ml INHALATION RT-Q2H PRN each 10/02/23 [Duoneb 0.5 mg-3 mg/3 ml Soln] lisinopriL [Zestril] 5 mg PO DAILY #0 10/02/23 predniSONE 10 mg PO DIRECTED #30 tab 10/02/23 Allergies Allergy/AdvReac Type Severity Reaction Status Date / Time No Known Allergies Allergy Verified 02/29/24 15:01 Review of Systems ROS Statement: Those systems with pertinent positive or pertinent negative responses have been documented in the HPI. ROS Other: All systems not noted in ROS Statement are negative. Constitutional: Denies: fever, chills Respiratory: Reports: cough, dyspnea Cardiovascular: Denies: chest pain Musculoskeletal: Denies: back pain Past Medical History Past Medical History: Heart Failure, COPD, GERD/Reflux, Hyperlipidemia, Osteoarthritis (OA) Additional Past Medical History / Comment(s): Aly esophagis, pt states she is being worked up for narcolepsy History of Any Multi-Drug Resistant Organisms: None Reported Past Surgical History: Section Additional Past Surgical History / Comment(s): Ankle, voice box surgery, colonoscopy Past Anesthesia/Blood Transfusion Reactions: No Reported Reaction Past Psychological History: Depression Smoking Status: Former smoker Past Alcohol Use History: Unable to Obtain Past Drug Use History: Unable to Obtain - Past Family History Mother Family Medical History: Cancer Additional Family Medical History / Comment(s): maternal grandma and uncles had stomach and esophageal cancer General Exam Limitations: no limitations General appearance: alert Head exam: Present: normocephalic Eye exam: Present: normal appearance Neck exam: Present: normal inspection Respiratory exam: Present: wheezes, decreased breath sounds Cardiovascular Exam: Present: tachycardia GI/Abdominal exam: Present: soft. Absent: tenderness Extremities exam: Present: normal inspection. Absent: pedal edema, calf tenderness Back exam: Present: normal inspection Neurological exam: Present: alert Psychiatric exam: Present: normal affect, normal mood Skin exam: Present: normal color Course Vital Signs 02/29/24 02/29/24 02/29/24 14:54 14:58 15:03 Temperature 97 F L Pulse Rate 116 H 110 H Respiratory 20 Rate Blood Pressure 137/97 O2 Sat by Pulse 99 Oximetry Fraction of 50 Inspired Oxygen (FIO2) 02/29/24 15:13 Temperature Pulse Rate 110 H Respiratory Rate Blood Pressure O2 Sat by Pulse Oximetry Fraction of Inspired Oxygen (FIO2) Medical Decision Making - Medical Decision Making Was pt. sent in by a medical professional or institution (, PA, [employer], urgent care, hospital, or fpc...) When possible be specific @ -Patient was sent from [place] Did you speak to anyone other than the patient for history (EMS, parent, family, police, friend...)? What history was obtained from this source @ -No Did you review nursing and triage notes (agree or disagree)? Why? @ -I reviewed and agree with nursing and triage notes Were old charts reviewed (outside hosp., previous admission, EMS record, old EKG, old radiological studies, urgent care reports/EKG's, fpc records)? Report findings @ -Reviewed from [facility] Differential Diagnosis (chest pain, altered mental status, abdominal pain women, abdominal pain men, vaginal bleeding, weakness, fever, dyspnea, syncope, headache, dizziness, GI bleed, back pain, seizure, CVA, palpatations, mental health, musculoskeletal)? @ -Not applicable EKG interpreted by me (3pts min.). @ -As above X-rays interpreted by me (1pt min.). @ -None done CT interpreted by me (1pt min.). @ -None done U/S interpreted by me (1pt. min.). @ -None done What testing was considered but not performed or refused? (CT, X-rays, U/S, labs)? Why? @ -None What meds were considered but not given or refused? Why? @ -None Did you discuss the management of the patient with other professionals (professionals i.e. , PA, [employer], lab, RT, psych nurse, psych social worker, decorator street and building, teacher, aoc operations intelligence officer, binder caser)? Give summary @ -Case was discussed with Dr. Cooper who will admit covering Dr. Bryant Was smoking cessation discussed for >3mins.? @ -No Was critical care preformed (if so, how long)? @ -31 minutes critical care time Were there social determinants of health that impacted care today? How? (Homelessness, low income, unemployed, alcoholism, drug addiction, transportation, low edu. Level, literacy, decrease access to med. care, fdc, rehab)? @ -No Was there de-escalation of care discussed even if they declined (Discuss DNR or withdrawal of care, Hospice)? DNR status @ -No What co-morbidities impacted this encounter? (DM, HTN, Smoking, COPD, CAD, Cancer, CVA, ARF, Chemo, Hep., AIDS, mental health diagnosis, sleep apnea, morbid obesity)? @ -coPD history Was patient admitted / discharged? Hospital course, mention meds given and route, prescriptions, significant lab abnormalities, going to OR and other pertinent info. @ -Patient presents as a transfer from [facility] for COPD. Patient arrives on CPAP and BiPAP started. Reports reviewed. Patient will be admitted, admission orders written. Consult placed. Undiagnosed new problem with uncertain prognosis? @ -No Drug Therapy requiring intensive monitoring for toxicity (Heparin, Nitro, Insulin, Cardizem)? @ -No Were any procedures done? @ -No Diagnosis/symptom? @ -COPD, respiratory failure Acute, or Chronic, or Acute on Chronic? @ -Acute on chronic, acute Uncomplicated (without systemic symptoms) or Complicated (systemic symptoms)? @ -Complicated with respiratory failure necessitating BiPAP Side effects of treatment? @ -No Exacerbation, Progression, or Severe Exacerbation? @ -Severe exacerbation Poses a threat to life or bodily function? How? (Chest pain, USA, MA, pneumonia, PE, COPD, DKA, ARF, appy, cholecystitis, CVA, Diverticulitis, Homicidal, Suicidal, threat to staff... and all critical care pts) @ -Acute pulmonary function Critical Care Time Critical Care Time: Yes Disposition Clinical Impression: Acute exacerbation of chronic obstructive pulmonary disease, Acute respiratory failure Disposition: ADMITTED IP TO THIS HOSP Condition: Serious Is patient prescribed a controlled substance at d/c from ED?: No Referrals: Donato Perrin MD [Primary Care Provider] - 1-2 days Time of Disposition: 15:25
[2024-02-29] MEDS: IPRATROPIUM-ALBUTEROL 3 ML NEB INHALATION STA (16:46)
[2024-02-29] MEDS: ENOXAPARIN 40 MG/0.4 ML SYRINGE SQ SCH (17:46)
[2024-02-29] MEDS: PRAMIPEXOLE 1 MG TAB PO SCH (17:46)
[2024-02-29] MEDS: methylPREDNISolone SOD SUCCI 125 MG/2 ML VIAL IV SCH ×2 (17:46→18:37)
[2024-02-29] MEDS: SODIUM CHLORIDE 0.9% 1,000 ML IV SCH (17:46)
--- NOTE | 2024-02-29 18:32 | P.HPIM ---
History of Present Illness H&P Date: 02/29/24 Chief Complaint: Short of breath 53-year-old patient, with Dr. Donato Perrin.. Chronic medical conditions include CHF, COPD, GERD, hyperlipidemia, osteoarthritis, Restrepo's esophagus, being worked up for narcolepsy. Has depression. Patient was seen in the ER. States she has been short of breath for a long time. Has 4 L of oxygen at home. Presents with much worsening short of breath. Appetite is okay. Denies any fever and chills. Patient had to be placed on a BiPAP in the ER. Does use a walker at baseline. Stopped smoking about 5 months ago. Patient was transferred from [facility]. Review of systems: GEN.: Tired EYES: None HEENT: Decreased hearing NECK: None RESPIRATORY: [As above CARDIOVASCULAR: None GASTROINTESTINAL: None GENITOURINARY: None MUSCULOSKELETAL: Joint pains e LYMPHATICS: None HEMATOLOGICAL: None PSYCHIATRY: None NEUROLOGICAL: Uses a walker Social history: Smoked a pack and half a day for close to 40 years. Stopped about 5 months ago. . Does have a walker. Home oxygen 4 L Physical examination: VITAL SIGNS: 97, 116, 28, 111 x 79, 100% on BiPAP GENERAL: BMI 37.5, reclining in bed BiPAP very short of breath EYES: [Pupils equal. Conjunctiva megan l. HEENT: External appearance of nose and ears normal, oral cavity grossly normal. NECK: JVD not raised; masses not palpable. HEART: First and second heart sounds are normal; no edema. LUNGS: Accessory muscles are working, unable to speak in full sentences. Respiratory rate increased. Poor air entry. ABDOMEN: Soft, nontender, liver spleen not palpable, no masses palpable. PSYCH: Alert and oriented x3; mood and affect megan l. MUSCULOSKELETAL:No Clubbing/cyanosis;muscles-grossly intact. OA. Kyphosis NEUROLOGICAL: Cranial nerves grossly intact; no facial asymmetry, power and sensation grossly intact. LYMPHATICS: No lymph nodes palpable in the axilla and neck INVESTIGATIONS, reviewed in the clinical context: X-ray from the transferring hospital reported unremarkable. Blood gases showed retaining CO2. Assessment plan: -Acute severe COPD exacerbation in a recent smoker DuoNeb every 4. Nebulized Pulmicort. IV Solu-Medrol. -Acute on chronic severe hypoxic and hypercapnic respiratory failure from underlying COPD Currently on BiPAP Pulmonary consulted -GERD Prilosec -Primary osteoarthritis of multiple joints Mobic -Chronic congestive heart failure, EF not known Diabetics. Aldactone. -Restless leg syndrome Mirapex -Essential hypertension Cardizem CD -Depression anxiety Cymbalta. BuSpar. Does not help. -Chronic gait dysfunction uses a walker at baseline -Full code Past Medical History Past Medical History: Heart Failure, COPD, GERD/Reflux, Hyperlipidemia, Osteoarthritis (OA) Additional Past Medical History / Comment(s): Aly esophagis, pt states she is being worked up for narcolepsy History of Any Multi-Drug Resistant Organisms: None Reported Past Surgical History: Section Additional Past Surgical History / Comment(s): Ankle, voice box surgery, colonoscopy Past Anesthesia/Blood Transfusion Reactions: No Reported Reaction Past Psychological History: Depression Smoking Status: Former smoker Past Alcohol Use History: Unable to Obtain Past Drug Use History: Unable to Obtain - Past Family History Mother Family Medical History: Cancer Additional Family Medical History / Comment(s): maternal grandma and uncles had stomach and esophageal cancer Medications and Allergies Home Medications Medication Instructions Recorded Confirmed Type Albuterol Sulfate [Ventolin HFA] 1 - 2 puff INHALATION RT-Q6H PRN 10/01/23 02/29/24 History Ergocalciferol [Vitamin D2 (1250 1,250 mcg PO MO 10/01/23 02/29/24 History Mcg = 77694 Iu)] Fluticasone/Umeclidin/Vilanter 1 puff INHALATION RT-DAILY 10/01/23 02/29/24 History [Trelegy Ellipta 200-62.5-25] Ipratropium-Albuterol Nebulize 3 ml INHALATION RT-QID 10/01/23 02/29/24 History [Duoneb 0.5 mg-3 mg/3 ml Soln] Meloxicam [Mobic] 15 mg PO DAILY 10/01/23 02/29/24 History Omeprazole [PriLOSEC] 40 mg PO DAILY 10/01/23 02/29/24 History Pramipexole [Mirapex] 1 mg PO QID 10/01/23 02/29/24 History DULoxetine HCL [Cymbalta] 60 mg PO BID 02/29/24 02/29/24 History Diltiazem Cd [Cardizem CD] 120 mg PO DAILY 02/29/24 02/29/24 History Spironolactone [Aldactone] 25 mg PO DAILY 02/29/24 02/29/24 History Torsemide [Demadex] 5 mg PO DAILY 02/29/24 02/29/24 History Torsemide [Demadex] 20 mg PO DAILY 02/29/24 02/29/24 History busPIRone HCL 15 mg PO BID 02/29/24 02/29/24 History lamoTRIgine [LaMICtal] 100 mg PO BID 02/29/24 02/29/24 History traZODone HCL [Desyrel] 100 mg PO HS 02/29/24 02/29/24 History Allergies Allergy/AdvReac Type Severity Reaction Status Date / Time No Known Allergies Allergy Verified 02/29/24 15:35 Physical Exam Vitals: Vital Signs Temp Pulse Resp BP Pulse Ox FiO2 02/29/24 17:50 112 H 20 95/67 98 02/29/24 17:30 50 02/29/24 17:29 103 H 16 111/79 100 02/29/24 16:01 108 H 22 99/68 100 02/29/24 15:25 120 H 28 H 100 02/29/24 15:13 110 H 02/29/24 15:03 110 H 02/29/24 14:58 50 02/29/24 14:54 97 F L 116 H 20 137/97 99 Intake and Output 02/29/24 02/29/24 02/29/24 06:59 14:59 22:59 Other: Weight 92.986 kg
[2024-02-29] MEDS: LORazepam 2 MG/ML INJ IV STA (19:21)
[2024-02-29] MEDS: IPRATROPIUM-ALBUTEROL 3 ML NEB INHALATION SCH (19:32)
[2024-02-29] MEDS: BUDESONIDE 1 MG/2 ML NEBU INHALATION SCH (19:32)
[2024-02-29] MEDS: LORazepam 0.5 MG TAB PO PRN (21:43)
[2024-02-29] MEDS: busPIRone HCl 5 MG TAB PO SCH (21:43)
[2024-02-29] MEDS: lamoTRIgine 100 MG TAB PO SCH (21:43)
[2024-02-29] MEDS: traZODone HCL 100 MG TAB PO SCH (21:43)
[2024-02-29] MEDS: DULoxetine HCL 60 MG CAPSULE.DR PO SCH (21:43)
[2024-03-01] MEDS: PANTOPRAZOLE 40 MG TABLET PO SCH (06:17)
[2024-03-01 07:03] LABS: Basophils % (A) 0 %; Eosinophils % (A) 0 %; HCT 29.7 % (34.0-46.0); HGB 9.3 gm/dL (11.4-16.0); Hypochromasia Slight; Lymphocytes # (A) 0.7 k/uL (1.0-4.8); Lymphocytes % (A) 10 %; MCH 27.7 pg (25.0-35.0); MCHC 31.4 g/dL (31.0-37.0); MCV 88.1 fL (80.0-100.0); Mean Platelet Volume 7.3; Monocytes # (A) 0.4 k/uL (0-1.0); Monocytes % (A) 6 %; Neutrophils # (A) 5.8 k/uL (1.3-7.7); Neutrophils % (A) 83 %; Platelet Count 283 k/uL (150-450); RBC 3.37 m/uL (3.80-5.40); RDW 13.1 % (11.5-15.5)
--- NOTE | 2024-03-01 07:21 | XR ---
EXAMINATION TYPE: XR chest 1V DATE OF EXAM: 03/01/2024 6:53 AM COMPARISON: Chest radiographs from10/01/2023 CLINICAL INDICATION: Female, 53 years old with history of COPD; [facility] TECHNIQUE: XR chest 1V Frontal view of the chest. FINDINGS: Lungs/Pleura: Low lung volumes are present. There is no evidence of pleural effusion, focal consolida tion, or pneumothorax. Pulmonary vascularity: Unremarkable. Heart/mediastinum: Cardiomediastinal silhouette is prominent in size. Musculoskeletal: No acute osseous pathology. Other findings: None IMPRESSION: 1. Bibasilar atelectasis. 2. COPD [facility], , 03/01/2024 7:19 AM
[2024-03-01 07:42] LABS: ALT 17 U/L (4-34); AST 22 U/L (14-36); African American GFR (CKD) >90 (>60 ml/min/1.73 sqM); Albumin 3.7 g/dL (3.5-5.0); Alkaline Phosphatase 72 U/L (38-126); Anion Gap 2 mmol/L; Blood Urea Nitrogen 20 mg/dL (7-17); Calcium 8.9 mg/dL (8.4-10.2); Carbon Dioxide 37 mmol/L (22-30); Chloride 97 mmol/L (98-107); Glucose 158 mg/dL (74-99); Non-African American GFR(CKD) >90 (>60 ml/min/1.73 sqM); Potassium 4.3 mmol/L (3.5-5.1); Sodium 136 mmol/L (137-145); Total Bilirubin 0.5 mg/dL (0.2-1.3); Total Protein 6.3 g/dL (6.3-8.2)
[2024-03-01] MEDS: IPRATROPIUM-ALBUTEROL 3 ML NEB INHALATION SCH (08:36)
[2024-03-01] MEDS: MELOXICAM 7.5 MG TAB PO SCH (10:00)
[2024-03-01] MEDS: DILTIAZEM CD 120 MG CAP.ER.24H PO SCH (10:01)
[2024-03-01] MEDS: TORSEMIDE 20 MG TAB PO SCH ×2 (10:01)
[2024-03-01] MEDS: SPIRONOLACTONE 25 MG TAB PO SCH (10:11)
--- NOTE | 2024-03-01 12:50 | P.CNPUL ---
History of Present Illness Consult date: 03/01/24 Requesting physician: Oliver Cooper Reason for consult: dyspnea, cough, COPD, hypoxemia Chief complaint: Falling at home, shortness of breath. History of present illness: Pulmonary consult dated March 01, 2024. 63-year-old female who looks much older than her stated age, presents to the em ergency department on February 28, with a couple different complaints including multiple falls at home, as well as shortness of breath. I believe the patient to be chronically short of breath, with any activity. I am not sure that she was actually admitted for a COPD exacerbation, but rather, following multiple times at home. We have seen her in the past, having fallen, with fractured ribs. Anyway, she is seen today in room 369. She is on 5 L nasal cannula. She uses 4 L at home. The patient did use BiPAP last night, with settings of 12/6, and 50%. The patient is placed on DuoNeb, Symbicort and prednisone 30 mg a day. The patient sees one of my partners in the office, and has severe lung disease, with an FEV1 that is 31% of predicted. That apparently was based on a PFT that was done 2 years ago. Home medications clued albuterol inhaler, Trelegy, 200, 1 puff daily, and a nebulizer machine with both albuterol, and ipratropium bromide. Current labs showed a white count 7, hemoglobin 9.3, hematocrit 29.7, and a normal platelet count. Sodium 136, potassium 4.3, chlorides 97, CO2 37, BUN 20, creatinine 0.49. Glucose 158. Viral studies were negative. Chest x- ray shows COPD changes, bibasilar atelectasis. Review of Systems REVIEW OF SYSTEMS: CONSTITUTIONAL: Multiple falling episodes at home. NEUROLOGIC: [ Negative.] HEENT: [ Negative.] CARDIAC: [Negative.] PULMONARY: Chronic dyspnea on exertion. GI: [Negative.] : [Negative.] RHEUMATOLOGIC: [ Negative.] IMMUNOLOGIC: [ Negative.] ENDOCRINE: [Negative. ] DERMATOLOGIC: [Negative.] Past Medical History Past Medical History: Heart Failure, COPD, GERD/Reflux, Hyperlipidemia, Osteoarthritis (OA) Additional Past Medical History / Comment(s): Aly esophagis, pt states she is being worked up for narcolepsy History of Any Multi-Drug Resistant Organisms: None Reported Past Surgical History: Section Additional Past Surgical History / Comment(s): Ankle, voice box surgery, colonoscopy Past Anesthesia/Blood Transfusion Reactions: No Reported Reaction Past Psychological History: Depression Smoking Status: Former smoker Past Alcohol Use History: Unable to Obtain Additional Past Alcohol Use History / Comment(s): pt states she quir smoking 3 weeks ago, was a pack and a half a day smoker for 40 years Past Drug Use History: Unable to Obtain Additional Drug Use History / Comment(s): pt states she takes a gummy at night - Past Family History Mother Family Medical History: Cancer Additional Family Medical History / Comment(s): maternal grandma and uncles had stomach and esophageal cancer Medications and Allergies Home Medications Medication Instructions Recorded Confirmed Type Albuterol Sulfate [Ventolin HFA] 1 - 2 puff INHALATION RT-Q6H PRN 10/01/23 02/29/24 History Ergocalciferol [Vitamin D2 (1250 1,250 mcg PO MO 10/01/23 02/29/24 History Mcg = 31536 Iu)] Fluticasone/Umeclidin/Vilanter 1 puff INHALATION RT-DAILY 10/01/23 02/29/24 History [Trelegy Ellipta 200-62.5-25] Ipratropium-Albuterol Nebulize 3 ml INHALATION RT-QID 10/01/23 02/29/24 History [Duoneb 0.5 mg-3 mg/3 ml Soln] Meloxicam [Mobic] 15 mg PO DAILY 10/01/23 02/29/24 History Omeprazole [PriLOSEC] 40 mg PO DAILY 10/01/23 02/29/24 History Pramipexole [Mirapex] 1 mg PO QID 10/01/23 02/29/24 History DULoxetine HCL [Cymbalta] 60 mg PO BID 02/29/24 02/29/24 History Diltiazem Cd [Cardizem CD] 120 mg PO DAILY 02/29/24 02/29/24 History Spironolactone [Aldactone] 25 mg PO DAILY 02/29/24 02/29/24 History Torsemide [Demadex] 5 mg PO DAILY 02/29/24 02/29/24 History Torsemide [Demadex] 20 mg PO DAILY 02/29/24 02/29/24 History busPIRone HCL 15 mg PO BID 02/29/24 02/29/24 History lamoTRIgine [LaMICtal] 100 mg PO BID 02/29/24 02/29/24 History traZODone HCL [Desyrel] 100 mg PO HS 02/29/24 02/29/24 History Allergies Allergy/AdvReac Type Severity Reaction Status Date / Time No Known Allergies Allergy Verified 02/29/24 15:35 Physical Exam Osteopathic Statement: *. No significant issues noted on an osteopathic structural exam other than those noted in the History and Physical/Consult. Vitals: Vital Signs Temp Pulse Pulse Resp BP BP Pulse Ox 03/01/24 12:12 96 03/01/24 11:58 96 03/01/24 11:12 98.5 F 93 16 128/71 95 03/01/24 08:44 104 H 03/01/24 08:25 100 03/01/24 08:00 98.0 F 101 H 17 116/62 96 03/01/24 04:00 98.3 F 106 H 16 144/82 99 03/01/24 00:56 100 03/01/24 00:44 96 03/01/24 00:00 96 17 132/79 98 02/29/24 22:00 98.3 F 103 H 23 144/88 99 02/29/24 20:34 120 H 20 103/85 99 02/29/24 20:28 98.2 F 02/29/24 19:43 113 H 02/29/24 19:33 109 H 02/29/24 19:28 125 H 26 H 97 02/29/24 19:27 124 H 20 110/96 99 02/29/24 18:24 18 L 18 124/102 97 02/29/24 17:50 112 H 20 95/67 98 02/29/24 17:30 02/29/24 17:29 103 H 16 111/79 100 02/29/24 16:01 108 H 22 99/68 100 02/29/24 15:25 120 H 28 H 100 02/29/24 15:13 110 H 02/29/24 15:03 110 H 02/29/24 14:58 02/29/24 14:54 97 F L 116 H 20 137/97 99 FiO2 03/01/24 12:12 03/01/24 11:58 03/01/24 11:12 03/01/24 08:44 03/01/24 08:25 03/01/24 08:00 03/01/24 04:00 50 03/01/24 00:56 03/01/24 00:44 50 03/01/24 00:00 50 02/29/24 22:00 50 02/29/24 20:34 02/29/24 20:28 02/29/24 19:43 02/29/24 19:33 50 02/29/24 19:28 02/29/24 19:27 02/29/24 18:24 02/29/24 17:50 02/29/24 17:30 50 02/29/24 17:29 02/29/24 16:01 02/29/24 15:25 02/29/24 15:13 02/29/24 15:03 02/29/24 14:58 50 02/29/24 14:54 Intake and Output 02/29/24 03/01/24 03/01/24 22:59 06:59 14:59 Output Total 950 Balance -950 Output: Urine 950 Other: Voiding Method Indwelling Catheter Indwelling Catheter Indwelling Catheter Weight 92.986 kg 91.7 kg No acute distress, oriented 3. Currently on 5 L of oxygen. Patient looks much older than her stated age of 53. HEENT examination is grossly unremarkable. Mucous membranes are moist. No oral lesions. Neck supple. Full range of motion. No adenopathy thyromegaly or neck vein distention. Cardiovascular examination reveals regular rhythm rate. S1-S2 normal. No S3 or S4. No discernible murmur noted. Lungs reveal diminished bilateral breath sounds throughout. No wheezes, rhonchi, or crackles. Breath sounds are diminished throughout. Breath sounds are equal. Abdomen soft bowel sounds are heard. No masses or tenderness. Extremities are intact. No cyanosis clubbing or edema. Skin is without rash or lesion. Neurologic examination is brief but nonfocal. Results - Laboratory Findings CBC and BMP: 03/01/24 06:39 03/01/24 06:39 Abnormal lab findings: Abnormal Labs 03/01/24 03/01/24 06:39 06:39 RBC 3.37 L Hgb 9.3 L Hct 29.7 L Lymphocytes # 0.7 L Sodium 136 L Chloride 97 L Carbon Dioxide 37 H BUN 20 H Creatinine 0.49 L Glucose 158 H - Diagnostic Findings Chest x-ray: image reviewed Assessment and Plan Assessment: Multiple falls at home, without apparent significant injury. Severe COPD, currently reasonably stable. Hypoxemic respiratory failure, on home O2 of 4 L. Multiple falling episodes in the past, with fractured ribs. History of congestive heart failure. History of hyperlipidemia. History of osteoarthritis. History of gastroesophageal reflux disease. Previous history of tobacco use. Plan: Plan dated March 01, 2024. The patient is currently on 5 L of oxygen. She uses 4 L at home. She did use BiPAP last night, with settings of 12/6, 50%. The patient is placed on DuoNebs, Symbicort, and prednisone 30 mg a day. According to the patient, my partner told her 2 years ago, that she had 31% lung function left. The patient currently does not smoke. Labs, x-rays, and medications are reviewed. Time with Patient: Greater than 30
[2024-03-01] MEDS ORDERED: SENNOSIDES-DOCUSATE SODIUM 1 EACH TAB PO STA (12:55)
--- NOTE | 2024-03-01 14:08 | P.PN ---
Progress Note - Text Progress Note Date: 03/01/24 Chief Complaint: Short of breath 53-year-old patient, with Dr. Donato Perrin.. Chronic medical conditions include CHF, COPD, GERD, hyperlipidemia, osteoarthritis, Restrepo's esophagus, being worked up for narcolepsy. Has depression. Patient was seen in the ER. States she has been short of breath for a long time. Has 4 L of oxygen at home. Presents with much worsening short of breath. Appetite is okay. Denies any fever and chills. Patient had to be placed on a BiPAP in the ER. Does use a walker at baseline. Stopped smoking about 5 months ago. Patient was transferred from [facility]. January 29: Admitted with COPD. COPD exacerbation and acute hypoxic hypercapnic failure. This morning sitting up in the chair. Off BiPAP. Nasal cannula. Eating better. Patient says she sometimes fell at home. Because she gets very sleepy. Getting worked up for narcolepsy by neurology. Does not remember the name. Per pulmonary be switched over to oral prednisone. Will watch today. Hopefully discharge tomorrow. Active Medications Albuterol/Ipratropium (Ipratropium-Albuterol 3 Ml Neb) 3 ml INHALATION RT-Q2H PRN PRN Reason: Shortness Of Breath Or Wheezing Albuterol/Ipratropium (Ipratropium-Albuterol 3 Ml Neb) 3 ml INHALATION RT-Q4H [facility] Last Admin: 03/01/24 11:57 Dose: 3 ml Budesonide/Formoterol Fumarate (Symbicort 160-4.5 Mcg Inhaler) 2 puff INHALATION RT-BID [facility] Buspirone HCl (Buspirone Hcl 5 Mg Tab) 15 mg PO BID [facility] Last Admin: 03/01/24 10:00 Dose: 15 mg Diltiazem HCl (Diltiazem Cd 120 Mg Cap.Er.24h) 120 mg PO DAILY [facility] Last Admin: 03/01/24 10:01 Dose: 120 mg Duloxetine HCl (Duloxetine Hcl 60 Mg Capsule.Dr) 60 mg PO BID [facility] Last Admin: 03/01/24 10:01 Dose: 60 mg Enoxaparin Sodium (Enoxaparin 40 Mg/0.4 Ml Syringe) 40 mg SQ DAILY [facility] Last Admin: 03/01/24 10:00 Dose: 40 mg Lamotrigine (Lamotrigine 100 Mg Tab) 100 mg PO BID [facility] Last Admin: 03/01/24 10:01 Dose: 100 mg Lorazepam (Lorazepam 0.5 Mg Tab) 0.5 mg PO HS PRN PRN Reason: Anxiety Last Admin: 02/29/24 21:43 Dose: 0.5 mg Meloxicam (Meloxicam 7.5 Mg Tab) 15 mg PO DAILY [facility] Last Admin: 03/01/24 10:00 Dose: 15 mg Naloxone HCl (Naloxone 0.4 Mg/Ml 1 Ml Vial) 0.2 mg IV Q2M PRN PRN Reason: Opioid Reversal Pantoprazole Sodium (Pantoprazole 40 Mg Tablet) 40 mg PO AC-BRKFST [facility] Last Admin: 03/01/24 06:17 Dose: 40 mg Pramipexole Dihydrochloride (Pramipexole 1 Mg Tab) 1 mg PO QID [facility] Last Admin: 03/01/24 10:00 Dose: 1 mg Prednisone (Prednisone 10 Mg Tab) 30 mg PO DAILY [facility] Spironolactone (Spironolactone 25 Mg Tab) 25 mg PO DAILY [facility] Last Admin: 03/01/24 10:11 Dose: 25 mg Torsemide (Torsemide 20 Mg Tab) 20 mg PO DAILY [facility] Last Admin: 03/01/24 10:01 Dose: 20 mg Torsemide (Torsemide 20 Mg Tab) 5 mg PO DAILY [facility] Last Admin: 03/01/24 10:01 Dose: 5 mg Trazodone HCl (Trazodone Hcl 100 Mg Tab) 100 mg PO HS [facility] Last Admin: 02/29/24 21:43 Dose: 100 mg Social history: Smoked a pack and half a day for close to 40 years. Stopped about 5 months ago. . Does have a walker. Home oxygen 4 L Physical examination: VITAL SIGNS: 98.5, 93, 16, 128 x 71, 95% on 4 L GENERAL: Up in the chair. Breathing better EYES: [Pupils equal. Conjunctiva megan l. HEENT: External appearance of nose and ears normal, oral cavity grossly normal. NECK: JVD not raised; masses not palpable. HEART: First and second heart sounds are normal; no edema. LUNGS: Respiratory effort increased. Decreased breath sounds. ABDOMEN: Soft, nontender, liver spleen not palpable, no masses palpable. PSYCH: Alert and oriented x3; mood and affect megan l. MUSCULOSKELETAL:No Clubbing/cyanosis;muscles-grossly intact. OA. Kyphosis INVESTIGATIONS, reviewed in the clinical context: January 29: White count 7 hemoglobin 9.3 platelets 283 sodium 136 potassium 4.3 BUN 20 creatinine 0.49 X-ray from the transferring hospital reported unremarkable. Blood gases showed retaining CO2. Assessment plan: -Acute severe COPD exacerbation in a recent smoker: Improving DuoNeb every 4. Nebulized Pulmicort-switched over to Symbicort. IV Solu-Medrol.-Changed over to oral prednisone -Acute on chronic severe hypoxic and hypercapnic respiratory failure from underlying COPD Initially on BiPAP. Now on 4 L Pulmonary following -GERD Prilosec -Primary osteoarthritis of multiple joints Mobic -Chronic congestive heart failure, EF not known Diabetics. Aldactone. -Being worked up outpatient for narcolepsy Patient does not remember the name of the neurologist -Restless leg syndrome Mirapex -Essential hypertension Cardizem CD -Depression anxiety Cymbalta. BuSpar. Does not help. -Chronic gait dysfunction uses a walker at baseline -Full code Discussed with patient. Med changes as above. Hopefully discharge tomorrow. Past Medical History Past Medical History: Heart Failure, COPD, GERD/Reflux, Hyperlipidemia, Osteoarthritis (OA) Additional Past Medical History / Comment(s): Aly esophagis, pt states she is being worked up for narcolepsy History of Any Multi-Drug Resistant Organisms: None Reported Past Surgical History: Section Additional Past Surgical History / Comment(s): Ankle, voice box surgery, colonoscopy Past Anesthesia/Blood Transfusion Reactions: No Reported Reaction Past Psychological History: Depression Smoking Status: Former smoker Past Alcohol Use History: Unable to Obtain Past Drug Use History: Unable to Obtain
[2024-03-01] MEDS: predniSONE 10 MG TAB PO SCH (14:43)
[2024-03-01] MEDS: SENNOSIDES-DOCUSATE SODIUM 1 EACH TAB PO ONE (15:57)
[2024-03-01 17:47] LABS: Glucose,Whole Blood 209 mg/dL (70-110)
[2024-03-01] MEDS: SYMBICORT 160-4.5 MCG INHALER INHALATION SCH (20:36)
[2024-03-02] MEDS: IPRATROPIUM-ALBUTEROL 3 ML NEB INHALATION PRN (05:11)
[2024-03-02 09:09] VITALS: RESP 20; TEMP 98
--- NOTE | 2024-03-02 11:19 | XR ---
EXAMINATION TYPE: XR Hip Complete LT DATE OF EXAM: 03/02/2024 10:55 AM COMPARISON: None CLINICAL INDICATION: Female, 53 years old with history of Left hip pain; [facility] TECHNIQUE: XR Hip Complete LT; Frontal and lateral views FINDINGS: No evidence for acute process, joint dislocation or significant soft tissue swelling. Osteo phyte formation of the superior acetabulum of the hip. There is mild joint space narrowing. IMPRESSION: 1. No evidence for acute process. 2. Mild hip osteoarthrosis. [facility], , 03/02/2024 11:17 AM
--- NOTE | 2024-03-02 12:19 | P.PN ---
Subjective Progress Note Date: 03/02/24 Principal diagnosis: Shortness of breath on exertion. Pulmonary consult dated March 01, 2024. 63-year-old female who looks much older than her stated age, presents to the [facility] department on February 28, with a couple different complaints including multiple falls at home, as well as shortness of breath. I believe the patient to be chronically short of breath, with any activity. I am not sure that she was actually admitted for a COPD exacerbation, but rather, following multiple times at home. We have seen her in the past, having fallen, with fractured ribs. Anyway, she is seen today in room 369. She is on 5 L nasal cannula. She uses 4 L at home. The patient did use BiPAP last night, with settings of 12/6, and 50%. The patient is placed on DuoNeb, Symbicort and prednisone 30 mg a day. The patient sees one of my partners in the office, and has severe lung disease, with an FEV1 that is 31% of predicted. That apparently was based on a PFT that was done 2 years ago. Home medications clued albuterol inhaler, Trelegy, 200, 1 puff daily, and a nebulizer machine with both albuterol, and ipratropium bromide. Current labs showed a white count 7, hemoglobin 9.3, hematocrit 29.7, and a normal platelet count. Sodium 136, potassium 4.3, chlorides 97, CO2 37, BUN 20, creatinine 0.49. Glucose 158. Viral studies were negative. Chest x- ray shows COPD changes, bibasilar atelectasis. Progress note dated March 02, 2024. The patient is seen today in room 369. She currently is on 4 L nasal cannula. No IV fluids. She did use BiPAP last night, with settings of 12/6, 50%. The patient was complaining of left hip pain. We have ordered some left hip x-rays. She was quite tearful today, because she states that the reason she came into the hospital was that she was falling at home. No new labs today. Labs from yesterday have been reviewed. Objective - Vital Signs Vital signs: Vital Signs Temp 98.0 F 03/02/24 08:00 Pulse 108 H 03/02/24 12:05 Resp 20 11/03/24 08:00 BP 188/78 03/02/24 08:00 Pulse Ox 97 03/02/24 08:00 FiO2 50 03/02/24 04:00 Intake & Output 03/01/24 03/02/24 03/02/24 19:59 06:59 18:59 Intake Total 150 Output Total 1900 Balance -1750 Weight Intake: Oral 150 Output: Urine 1900 Other: Voiding Method Toilet - Exam No acute distress, oriented 3. Currently on 4 L of oxygen. Patient looks much older than her stated age of 53. HEENT examination is grossly unremarkable. Mucous membranes are moist. No oral lesions. Neck supple. Full range of motion. No adenopathy thyromegaly or neck vein distention. Cardiovascular examination reveals regular rhythm rate. S1-S2 normal. No S3 or S4. No discernible murmur noted. Lungs reveal diminished bilateral breath sounds throughout. No wheezes, rhonchi, or crackles. Breath sounds are diminished throughout. Breath sounds are equal. Abdomen soft bowel sounds are heard. No masses or tenderness. Extremities are intact. No cyanosis clubbing or edema. Skin is without rash or lesion. Neurologic examination is brief but nonfocal. - Labs CBC & Chem 7: 03/01/24 06:39 03/01/24 06:39 Labs: Abnormal Lab Results - Last 24 Hours (Table) 03/01/24 Range/Units 17:46 POC Glucose (mg/dL) 209 H (70-110) mg/dL Assessment and Plan Assessment: Multiple falls at home, without apparent significant injury. Left hip pain, x-rays ordered. Severe COPD, currently reasonably stable. Hypoxemic respiratory failure, on home O2 of 4 L. Multiple falling episodes in the past, with fractured ribs. History of congestive heart failure. History of hyperlipidemia. History of osteoarthritis. History of gastroesophageal reflux disease. Previous history of tobacco use. Plan: Plan dated March 01, 2024. The patient is currently on 5 L of oxygen. She uses 4 L at home. She did use BiPAP last night, with settings of 12/6, 50%. The patient is placed on DuoNebs, Symbicort, and prednisone 30 mg a day. According to the patient, my partner told her 2 years ago, that she had 31% lung function left. The patient currently does not smoke. Labs, x-rays, and medications are reviewed. Plan dated March 02, 2024. The patient is currently on 4 L. She did use a BiPAP device last night, with settings of 12/6, and 50%. The patient is not receiving any IV fluids. The patient was quite tearful today. She states that she came to the hospital, because she has been falling a lot at home. I told her to make sure she lets her primary hospital doctor know about that. In addition, the patient complained of left hip pain. We have ordered some left hip x-rays. Labs, x- rays, and medications are reviewed. The patient's overall prognosis remains guarded. We will continue to follow. Time with Patient: Less than 30
[2024-03-02 13:13] VITALS: BP 122/73; PULSE 105
--- NOTE | 2024-03-03 12:25 | P.DS ---
Providers Date of admission: 02/29/24 15:23 Expected date of discharge: 03/02/24 Attending physician: Oliver Cooper Consults: 02/29/24 15:21 Consult Physician Urgent Consulting Provider: Mitchel Mercado Consult Reason/Comments: bipap, copd Do you want consulting provider notified?: Yes Primary care physician: [facility] Course: Chief Complaint: Short of breath 53-year-old patient, with Dr. Donato Perrin.. Chronic medical conditions include CHF, COPD, GERD, hyperlipidemia, osteoarthritis, Restrepo's esophagus, being worked up for narcolepsy. Has depression. Patient was seen in the ER. States she has been short of breath for a long time. Has 4 L of oxygen at home. Presents with much worsening short of breath. Appetite is okay. Denies any fever and chills. Patient had to be placed on a BiPAP in the ER. Does use a walker at baseline. Stopped smoking about 5 months ago. Patient was transferred from [facility]. January 29: Admitted with COPD. COPD exacerbation and acute hypoxic hypercapnic failure. This morning sitting up in the chair. Off BiPAP. Nasal cannula. Eating better. Patient says she sometimes fell at home. Because she gets very sleepy. Getting worked up for narcolepsy by neurology. Does not remember the name. Per pulmonary be switched over to oral prednisone. Will watch today. Hopefully discharge tomorrow. January 30: Breathing much better. Up in a chair. Patient is being followed up for narcolepsy by neurology. Medications reviewed with the patient. Questions answered today. Does not need a taper of prednisone. Stop. Discussion and discharge planning more than 35 minutes Social history: Smoked a pack and half a day for close to 40 years. Stopped about 5 months ago. . Does have a walker. Home oxygen 4 L Physical examination: VITAL SIGNS: 98, 105, 20, 122 x 73, 97% on 4 L GENERAL: Up in the chair. Breathing improved EYES: [Pupils equal. Conjunctiva megan l. HEENT: External appearance of nose and ears normal, oral cavity grossly normal. NECK: JVD not raised; masses not palpable. HEART: First and second heart sounds are normal; no edema. LUNGS: Respiratory effort increased. Decreased breath sounds. ABDOMEN: Soft, nontender, liver spleen not palpable, no masses palpable. PSYCH: Alert and oriented x3; mood and affect megan l. MUSCULOSKELETAL:No Clubbing/cyanosis;muscles-grossly intact. OA. Kyphosis INVESTIGATIONS, reviewed in the clinical context: January 29: White count 7 hemoglobin 9.3 platelets 283 sodium 136 potassium 4.3 BUN 20 creatinine 0.49 X-ray from the transferring hospital reported unremarkable. Blood gases showed retaining CO2. Assessment plan: -Acute severe COPD exacerbation in a recent smoker: Better DuoNeb every 4. Nebulized Pulmicort-switched over to Symbicort. IV Solu-Medrol.-Changed over to oral prednisone. No prednisone on discharge. -Acute on chronic severe hypoxic and hypercapnic respiratory failure from underlying COPD Initially on BiPAP. Now on 4 L Pulmonary following -GERD Prilosec -Primary osteoarthritis of multiple joints Mobic -Chronic congestive heart failure, EF not known Diabetics. Aldactone. -Being worked up outpatient for narcolepsy Follow-up with the neurologist -Restless leg syndrome Mirapex -Essential hypertension Cardizem CD -Depression anxiety Cymbalta. BuSpar. Does not help. -Chronic gait dysfunction uses a walker at baseline -Full code Dispo patient: Home Past Medical History Past Medical History: Heart Failure, COPD, GERD/Reflux, Hyperlipidemia, Osteoarthritis (OA) Additional Past Medical History / Comment(s): Aly esophagis, pt states she is being worked up for narcolepsy History of Any Multi-Drug Resistant Organisms: None Reported Past Surgical History: Section Additional Past Surgical History / Comment(s): Ankle, voice box surgery, colonoscopy Past Anesthesia/Blood Transfusion Reactions: No Reported Reaction Past Psychological History: Depression Smoking Status: Former smoker Past Alcohol Use History: Unable to Obtain Past Drug Use History: Unable to Obtain Plan - Discharge Summary Discharge Rx Participant: No New Discharge Prescriptions: Continue Pramipexole [Mirapex] 1 mg PO QID Omeprazole [PriLOSEC] 40 mg PO DAILY Ergocalciferol [Vitamin D2 (1250 Mcg = 70637 Iu)] 1,250 mcg PO MO Albuterol Sulfate [Ventolin HFA] 1 - 2 puff INHALATION RT-Q6H PRN PRN Reason: Shortness Of Breath Meloxicam [Mobic] 15 mg PO DAILY Spironolactone [Aldactone] 25 mg PO DAILY Ipratropium-Albuterol Nebulize [Duoneb 0.5 mg-3 mg/3 ml Soln] 3 ml INHALATION RT-QID Fluticasone/Umeclidin/Vilanter [Trelegy Ellipta 200-62.5-25] 1 puff INHALATION RT-DAILY busPIRone HCL 15 mg PO BID Diltiazem Cd [Cardizem CD] 120 mg PO DAILY DULoxetine HCL [Cymbalta] 60 mg PO BID Torsemide [Demadex] 20 mg PO DAILY Torsemide [Demadex] 5 mg PO DAILY lamoTRIgine [LaMICtal] 100 mg PO BID traZODone HCL [Desyrel] 100 mg PO HS Discharge Medication List Albuterol Sulfate [Ventolin HFA] 1 - 2 puff INHALATION RT-Q6H PRN 10/01/23 [History] Ergocalciferol [Vitamin D2 (1250 Mcg = 98953 Iu)] 1,250 mcg PO MO 10/01/23 [History] Fluticasone/Umeclidin/Vilanter [Trelegy Ellipta 200-62.5-25] 1 puff INHALATION RT-DAILY 10/01/23 [History] Ipratropium-Albuterol Nebulize [Duoneb 0.5 mg-3 mg/3 ml Soln] 3 ml INHALATION RT-QID 10/01/23 [History] Meloxicam [Mobic] 15 mg PO DAILY 10/01/23 [History] Omeprazole [PriLOSEC] 40 mg PO DAILY 10/01/23 [History] Pramipexole [Mirapex] 1 mg PO QID 10/01/23 [History] DULoxetine HCL [Cymbalta] 60 mg PO BID 02/29/24 [History] Diltiazem Cd [Cardizem CD] 120 mg PO DAILY 02/29/24 [History] Spironolactone [Aldactone] 25 mg PO DAILY 02/29/24 [History] Torsemide [Demadex] 5 mg PO DAILY 02/29/24 [History] Torsemide [Demadex] 20 mg PO DAILY 02/29/24 [History] busPIRone HCL 15 mg PO BID 02/29/24 [History] lamoTRIgine [LaMICtal] 100 mg PO BID 02/29/24 [History] traZODone HCL [Desyrel] 100 mg PO HS 02/29/24 [History] Follow up Appointment(s)/Referral(s): Bri Alexandre MD [STAFF PHYSICIAN] - 1 Week (Please call and make follow up appt. Office is closed.) Jovon Child MD [REFERRING] - 1-2 Days (Please call and make follow up, office closed) Patient Instructions/Handouts: COPD (Chronic Obstructive Pulmonary Disease) (DC) Discharge Disposition: HOME WITH HOME HEALTH SERVICES
== END 2024-03-02 13:58 | disposition home health service (06) | DRG 190 ==
LOC: SUPCPDRO 14:45 → EC 14:45 → 3SCARD 15:23
PROVIDERS: ADMIT Hospitalist; ATTEND Hospitalist
PROC: 5A09357 Assistance with Respiratory Ventilation, Less than 24 Consecutive Hours, Continuous Positive Airway Pressure (ICD-10-PCS; principal; 2024-02-29)
DX: J44.1 Chronic obstructive pulmonary disease with (acute) exacerbation (principal); J96.01 Acute respiratory failure with hypoxia; J96.02 Acute respiratory failure with hypercapnia; R29.6 Repeated falls; G25.81 Restless legs syndrome; E78.5 Hyperlipidemia, unspecified; Z99.81 Dependence on supplemental oxygen; R26.9 Unspecified abnormalities of gait and mobility; F32.A Depression, unspecified; G47.419 Narcolepsy without cataplexy; K21.9 Gastro-esophageal reflux disease without esophagitis; I11.0 Hypertensive heart disease with heart failure; I50.9 Heart failure, unspecified; M19.90 Unspecified osteoarthritis, unspecified site; K22.70 Barrett's esophagus without dysplasia; Z87.891 Personal history of nicotine dependence; Z79.899 Other long term (current) drug therapy; Z79.1 Long term (current) use of non-steroidal anti-inflammatories (NSAID); Z79.51 Long term (current) use of inhaled steroids
CPT/HCPCS: 71045; 73502; 80053; 85025; 87636; 94640; 94660; 96372; 96374; 96375; 99291